=== PATIENT | male | born 1985 | race Caucasian/White ===

== ENCOUNTER 2021-05-23 14:30 | Emergency (ER) | payer SELFPAY ==
[2021-05-23 14:48] VITALS: BP 147/101; PULSE 102; RESP 16; TEMP 36.7; O2SAT 98
--- NOTE | 2021-05-23 14:49 | ED.ANIMALBIT ---
HPI - Animal Bite General Chief Complaint: Animal Bite Stated Complaint: Dog Bite Time Seen by Provider: 05/23/21 14:49 Source: patient Mode of arrival: ambulatory Limitations: no limitations History of Present Illness HPI narrative: 36-year-old male presents with dog bite to right hand. Injury happened today. States that his dog got into some hard-boiled eggs but they were going to for Easter and he tried to get dog away from things. Has had known 1.5 years. Dog is up-to-date on vaccines has never been him before. Range of motion to right hand intact, distal neurovascular intact. No active bleeding. All systems reviewed and negative except as noted above. Related Data Allergies Allergy/AdvReac Type Severity Reaction Status Date / Time RAGWEED Allergy Mild Uncoded 01/17/13 23:21 Review of Systems Review of Systems: CONSTITUTIONAL: Denies fever, chills, or sweats. EYES: Denies visual changes, redness, or discharge. ENT: Denies rhinorrhea, congestion, sore throat, or otalgia. CARDIOVASCULAR: Denies chest pain, palpitations, or edema. RESPIRATORY: Denies cough or dyspnea. GASTROINTESTINAL: Denies abdominal pain, nausea, vomiting, or diarrhea. GENITOURINARY: Denies dysuria or hematuria. SKIN: Denies rash or itching. Reports puncture wounds to right hand from dog bite. MUSCULOSKELETAL: Denies back pain, joint pain, or myalgia. NEUROLOGIC: Denies headache, numbness, or weakness. PSYCHIATRIC: Denies anxiety or depression. All other systems reviewed are negative, except as documented in HPI. PMFSH Comments At time of signature, agree with nursing past medical, surgical, social and family history. There is no relevant family history pertinent to the presenting complaint. Exam Narrative: GENERAL: This is a well-nourished, well-developed patient, in no apparent distress. HEAD: normocephalic, atraumatic. EYES: PERRL. Sclera clear/white. Vision is grossly intact. EARS: External ears normal NOSE: External nose normal NECK: Neck supple, non-tender without lymphadenopathy, masses or thyromegaly. CARDIOVASCULAR: Regular rate and rhythm without murmurs, gallops, or rubs. RESPIRATORY: Clear to auscultation. Breath sounds equal bilaterally. No wheezes, rales, or rhonchi. SKIN: warm, Dry, with no suspicious lesions or rash, good texture and turgor. Multiple puncture wounds to right thumb index finger, and 1 superficial laceration to posterior right wrist. Approximately 5-6 puncture wound to thumb and index finger. Bleeding controlled. Range of motion intact to right hand, thumb and right index finger. NEURO: awake, alert, and oriented to person, place and time. There were no obvious focal neurologic abnormalities. EXTREMITIES: Normal range of motion to all extremities. Course Course Level of Care: Express Care Visit Vital Signs Vital signs: Vital Signs Temperature 36.7 C 05/23/21 14:48 Pulse Rate 102 H 05/23/21 14:48 Respiratory Rate 16 05/23/21 14:48 Blood Pressure 147/101 H 05/23/21 14:48 Pulse Oximetry 98 05/23/21 14:48 Temperature 36.7 C 05/23/21 14:48 Pulse Rate 102 H 05/23/21 14:48 Respiratory Rate 16 05/23/21 14:48 Blood Pressure 147/101 H 05/23/21 14:48 Pulse Oximetry 98 05/23/21 14:48 Reviewed MDM - Animal Bite MDM Narrative Medical decision making narrative: Multiple puncture wounds to right hand. None of these wounds require suture or Steri-Strip repair. Course Differential Diagnosis Differential diagnosis: Likely dog bite Discharge Plan Discharge Clinical Impression: Dog bite of right hand Qualifiers: Encounter type: initial encounter Qualified Code(s): S61.451A - Open bite of right hand, initial encounter Patient Disposition: Home, Self-Care Condition: Stable Instructions: Antibiotic Form, Animal Bite (ED) Additional Instructions: Take antibiotic to prevent wound infection. Take ibuprofen or Tylenol to treat your pain. Keep wounds clean and dry. Wa
[2021-05-23] MEDS: TETANUS,DIPHTHERIA,AC PERTUSSIS ADULT (0.5 ML) BOOSTRIX IM (15:01)
== END 2021-05-23 15:12 | disposition home or self-care (01) ==
PROVIDERS: Emergency Provider Nurse Practitioner Family
DX: S61.031A Puncture wound without foreign body of right thumb without damage to nail, initial encounter (principal); S61.230A Puncture wound without foreign body of right index finger without damage to nail, initial encounter; W54.0XXA Bitten by dog, initial encounter; S61.511A Laceration without foreign body of right wrist, initial encounter; Z23 Encounter for immunization
CPT/HCPCS: 90471; 90715; 99213; G0463